=== PATIENT | female | born 1950 | race Caucasian/White ===

== ENCOUNTER 2017-06-02 17:19 | Emergency (ER) | payer MEDICARE, BC ==
[2017-06-02 17:39] VITALS: BP 172/78
[2017-06-02] MEDS ORDERED: Sodium Chloride 0.9% 10 ML Syringe FLUSH PRN (18:27)
[2017-06-02] MEDS ORDERED: HYDROmorphone 0.5 MG/0.5 ML Syringe IVPUSH ONE (18:27)
--- NOTE | 2017-06-02 18:33 | EDM.PDOC ---
ED HPI GENERAL MEDICAL PROBLEM - General Chief Complaint: Lower Extremity Injury/Pain Stated Complaint: MEDICAL Time Seen by Provider: 06/02/17 18:20 Source of Information: Reports: Patient, Family, Old Records History Limitations: Reports: No Limitations - History of Present Illness INITIAL COMMENTS - FREE TEXT/NARRATIVE: 66 yo morbidly obese female injured her left knee this past Tuesday when she tried to flex the knee to get her pants on and heard a pop laterally associated with pain. Has been getting around with a wheelchair in her home since then with difficulty. Didn't think she would be able to get in their car so called for an ambulance. 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) Left Leg Pain Score (Numeric/FACES): 10 - Related Data Allergies Allergy/AdvReac Type Severity Reaction Status Date / Time clindamycin Allergy Hives Verified 06/02/17 17:27 codeine Allergy Hives Verified 06/02/17 17:27 gabapentin [From Neurontin] Allergy Weakness Verified 06/02/17 17:27 hydroxychloroquine sulfate Allergy Joint Pain Verified 06/02/17 17:27 [From Plaquenil] latex Allergy Rash Verified 06/02/17 17:27 moxifloxacin HCl Allergy Cannot Verified 06/02/17 17:27 [From Avelox] Remember Penicillins Allergy Cannot Verified 06/02/17 17:27 Remember spironolactone Allergy Cannot Verified 06/02/17 17:27 Remember venom-honey bee Allergy Swelling Verified 06/02/17 17:27 [bee venom (honey bee)] Home Meds: Home Meds Celecoxib [CeleBREX] 200 mg PO ASDIRECTED PRN 12/11/13 [History] EPINEPHrine [Epipen 2-Chano] 0.3 mg SUBCUT ASDIRECTED PRN 12/11/13 [History] HYDROmorphone [Dilaudid] 4 mg PO Q4H PRN #14 tab 06/02/17 [Rx] Ibuprofen 400 mg PO ASDIRECTED PRN 06/02/17 [History] Past Medical History HEENT History: Reports: Impaired Vision Cardiovascular History: Reports: High Cholesterol, Hypertension 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: , 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 Musculoskeletal History: Reports: Other (See Below) Other Musculoskeletal History: fx toes Neurological History: Reports: Neuropathy, Peripheral Psychiatric History: Reports: Depression Endocrine/Metabolic History: Reports: Diabetes, Type II, Obesity/BMI 30+ Hematologic History: Reports: B12 Deficiency - Infectious Disease History Infectious Disease History: Reports: Chicken Pox, Measles, Mumps - Past Surgical History GI Surgical History: Reports: Appendectomy, Bariatric Procedure, Cholecystectomy Female Surgical History: Reports: Hysterectomy Social & Family History - Tobacco Use Smoking Status *Q: Never Smoker Second Hand Smoke Exposure: No - Caffeine Use Caffeine Use: Reports: Coffee, Tea - Alcohol Use Days Per Week of Alcohol Use: 0 - Recreational Drug Use Recreational Drug Use: No Review of Systems - Review of Systems Review Of Systems: See Below Constitutional: Reports: No Symptoms Eyes: Reports: No Symptoms Ears: Reports: No Symptoms Nose: Reports: No Symptoms Mouth/Throat: Reports: No Symptoms Respiratory: Reports: No Symptoms Cardiovascular: Reports: No Symptoms GI/Abdominal: Reports: No Symptoms Genitourinary: Reports: No Symptoms Musculoskeletal: Reports: Other (L knee pain laterally) Skin: Reports: No Symptoms Neurological: Reports: Other (Has neuropathy) ED EXAM, GENERAL - Physical Exam Exam: See Below Exam Limited By: No Limitations General Appearance: Alert, WD/WN, No Apparent Distress, Obese Eye Exam: Bilateral Eye: Normal Inspection Ears: Normal External Exam, Normal Canal, Hearing Grossly Normal, Normal TMs Ear Exam: Bilateral Ear: Auricle Normal, Canal Normal Nose: Normal Inspection, Normal Mucosa, No Blood Throat/Mouth: Normal Inspection, Normal Lips, Normal Oropharynx, Normal Voice, No Airway Compromise Head: Atraumatic, Normocephalic Neck: Normal Inspection, Supple, Non-Tender Respiratory/Chest: No Respiratory Distress, Lungs Clear, Normal Breath Sounds, No Accessory Muscle Use Cardiovascular: Regular Rate, Rhythm GI/Abdominal: Normal Bowel Sounds, Soft, Non-Tender, No Distention Extremities: Normal Inspection, Other (No redness or increased warmth. Tender lateral L knee. ). No: Joint Swelling Psychiatric: Normal Affect, Normal Mood Skin Exam: Warm, Dry, Intact, Normal Color, No Rash Lymphatic: No Adenopathy Course - Vital Signs Text/Narrative:: Was able to walk with a walker here in the ER. Does not want to stay. Home with . Last Recorded V/S: Last Vital Signs Temp 36.8 C 06/02/17 17:40 Pulse 64 06/02/17 17:40 Resp 14 06/02/17 17:40 BP 172/78 H 06/02/17 17:40 Pulse Ox 97 06/02/17 17:40 - Orders/Labs/Meds Orders: Active Orders 24 hr Category Date Time Status Knee 3V Lt [CR] Stat Exams 06/02/17 18:28 Taken Sodium Chloride 0.9% [Saline Flush] Med 06/02/17 18:27 Active 10 ml FLUSH ASDIRECTED PRN Saline Lock Insert [OM.PC] Routine Oth 06/02/17 18:27 Ordered Medication Orders Sodium Chloride (Saline Flush) 10 ml FLUSH ASDIRECTED PRN PRN Reason: Keep Vein Open Last Admin: 06/02/17 19:06 Dose: 10 ml Meds: Medications Generic Name Dose Route Start Last Admin Trade Name Freq PRN Reason Stop Dose Admin Sodium Chloride 10 ml 06/02/17 18:27 06/02/17 19:06 Saline Flush FLUSH 10 ml ASDIRECTED PRN Administration Keep Vein Open Discontinued Medications Generic Name Dose Route Start Last Admin Trade Name Freq PRN Reason Stop Dose Admin Hydromorphone HCl 0.5 mg 06/02/17 18:27 06/02/17 19:05 Dilaudid IVPUSH 06/02/17 18:28 0.5 mg ONETIME ONE Administration - Radiology Interpretation Free Text/Narrative:: L knee X-ray- Departure - Departure Time of Disposition: 20:46 Disposition: Home, Self-Care 01 Condition: Fair Clinical Impression: Knee pain, acute Qualifiers: Laterality: left Qualified Code(s): M25.562 - Pain in left knee - Discharge Information Prescriptions: HYDROmorphone [Dilaudid] 4 mg PO Q4H PRN #14 tab PRN Reason: Pain Referrals: PCP,None [Primary Care Provider] - Forms: ED Department Discharge Additional Instructions: Take acetaminophen 1000 mg every 6 hrs for pain relief. Add Dilaudid 4 mg every 4-6 hrs for added relief. F/U with orthopedics at your earliest opportunity. See your family doctor in the interim if needed. - My Orders Last 24 Hours: My Active Orders 06/02/17 18:27 Sodium Chloride 0.9% [Saline Flush] 10 ml FLUSH ASDIRECTED PRN Saline Lock Insert [OM.PC] Routine 06/02/17 18:28 Knee 3V Lt [CR] Stat - Assessment/Plan Last 24 Hours: My Active Orders 06/02/17 18:27 Sodium Chloride 0.9% [Saline Flush] 10 ml FLUSH ASDIRECTED PRN Saline Lock Insert [OM.PC] Routine 06/02/17 18:28 Knee 3V Lt [CR] Stat
--- NOTE | 2017-06-03 10:28 | CR ---
Advanced hypertrophic change lateral compartment. Hypertrophic change medial compartment. Joint space narrowing medial and lateral compartments is moderate. Advanced degenerative changes patellofemoral compartment. No evidence for fracture.
== END 2017-06-02 21:03 | disposition home or self-care (01) ==
LOC: JP.ED 17:19
DX: M25.562 Pain in left knee (principal); I10 Essential (primary) hypertension; E11.9 Type 2 diabetes mellitus without complications; Z88.1 Allergy status to other antibiotic agents; Z88.0 Allergy status to penicillin; Z88.8 Allergy status to other drugs, medicaments and biological substances; Z88.5 Allergy status to narcotic agent
CPT/HCPCS: 73562; 96374; 99284; J1170; J7050

== ENCOUNTER 2017-08-21 07:44 | Emergency (ER) | payer MEDICARE, BC ==
[2017-08-21 08:13] VITALS: BP 176/82
--- NOTE | 2017-08-21 08:45 | EDM.PDOC ---
ED HPI GENERAL MEDICAL PROBLEM - General Chief Complaint: Abdominal Pain Stated Complaint: STOMACH PAIN Time Seen by Provider: 08/21/17 08:39 Source of Information: Reports: Patient, Family History Limitations: Reports: No Limitations - History of Present Illness INITIAL COMMENTS - FREE TEXT/NARRATIVE: 66-year-old female who was had lower abdominal pain for the past 4-6 days. It suprapubic, somewhat radiating into the left lower quadrant and into her lower back. She is developed some mild dysuria over the past 48 hours. Denies any fevers or chills, denies nausea or vomiting, denies diarrhea. Onset: Gradual Location: Reports: Abdomen Severity: Moderate Worsens with: Reports: Movement Associated Symptoms: Reports: Other (Mild to moderate dysuria and increased urinary frequency) - Related Data Allergies Allergy/AdvReac Type Severity Reaction Status Date / Time clindamycin Allergy Hives Verified 08/21/17 08:27 codeine Allergy Hives Verified 08/21/17 08:27 gabapentin [From Neurontin] Allergy Weakness Verified 08/21/17 08:27 hydroxychloroquine sulfate Allergy Joint Pain Verified 08/21/17 08:27 [From Plaquenil] latex Allergy Rash Verified 08/21/17 08:27 moxifloxacin HCl Allergy Cannot Verified 08/21/17 08:27 [From Avelox] Remember Penicillins Allergy Cannot Verified 08/21/17 08:27 Remember spironolactone Allergy Cannot Verified 08/21/17 08:27 Remember venom-honey bee Allergy Swelling Verified 08/21/17 08:27 [bee venom (honey bee)] Home Meds: Home Meds Celecoxib [CeleBREX] 200 mg PO ASDIRECTED PRN 12/11/13 [History] EPINEPHrine [Epipen 2-Chano] 0.3 mg SUBCUT ASDIRECTED PRN 12/11/13 [History] Ibuprofen 400 mg PO ASDIRECTED PRN 06/02/17 [History] traMADol [Ultram] 50 mg PO TID PRN 06/06/17 [History] Omeprazole 40 mg PO ASDIRECTED 08/21/17 [History] Past Medical History HEENT History: Reports: Impaired Vision Cardiovascular History: Reports: High Cholesterol, Hypertension 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 left leg pain Neurological History: Reports: Neuropathy, Peripheral Psychiatric History: Reports: Depression Endocrine/Metabolic History: Reports: Diabetes, Type II, Obesity/BMI 30+ Hematologic History: Reports: B12 Deficiency - Infectious Disease History Infectious Disease History: Reports: Chicken Pox, Measles, Mumps - Past Surgical History GI Surgical History: Reports: Appendectomy, Bariatric Procedure, Cholecystectomy Female Surgical History: Reports: Hysterectomy Social & Family History - Tobacco Use Smoking Status *Q: Never Smoker - Caffeine Use Caffeine Use: Reports: Coffee - Recreational Drug Use Recreational Drug Use: No ED ROS GENERAL - Review of Systems Review Of Systems: See Below Constitutional: Reports: Malaise. Denies: Fever, Chills HEENT: Reports: No Symptoms Respiratory: Denies: Shortness of Breath Cardiovascular: Denies: Chest Pain GI/Abdominal: Reports: Abdominal Pain. Denies: Constipation, Diarrhea, Nausea, Vomiting : Reports: Dysuria, Frequency, Urgency Skin: Reports: No Symptoms Neurological: Reports: No Symptoms ED EXAM, GI/ABD - Physical Exam Exam: See Below Exam Limited By: No Limitations General Appearance: Alert, No Apparent Distress Eyes: Bilateral: Normal Appearance (No jaundice) Respiratory/Chest: No Respiratory Distress, Lungs Clear Cardiovascular: Regular Rate, Rhythm GI/Abdominal Exam: Soft, Tender (Patient is tender to palpation in the suprapubic area and into the lower left quadrant. She also has mild rebound tenderness in this area.) Course - Vital Signs Last Recorded V/S: Last Vital Signs Temp 98.7 F 08/21/17 08:33 Pulse 81 08/21/17 08:33 Resp 14 08/21/17 08:33 BP 176/82 H 08/21/17 08:33 Pulse Ox 95 08/21/17 08:33 - Orders/Labs/Meds Orders: Active Orders 24 hr Category Date Time Status Abdomen Pelvis wo Cont [CT] Stat Exams 08/21/17 09:26 Taken UA W/MICROSCOPIC [URIN] Urgent Lab 08/21/17 08:49 Ordered Labs: Laboratory Tests 08/21/17 08/21/17 08/21/17 Range/Units 08:49 08:54 08:54 WBC 8.6 (4.5-11.0) K/uL RBC 4.56 (3.30-5.50) M/uL Hgb 13.8 (12.0-15.0) g/dL Hct 40.9 (36.0-48.0) % MCV 90 (80-98) fL MCH 30 (27-31) pg MCHC 34 (32-36) % Plt Count 215 (150-400) K/uL Neut % (Auto) 77 H (36-66) % Lymph % (Auto) 13 L (24-44) % Stanly % (Auto) 10 H (2-6) % Eos % (Auto) 1 L (2-4) % Baso % (Auto) 0 (0-1) % Sodium 141 (140-148) mmol/L Potassium 4.0 (3.6-5.2) mmol/L Chloride 105 (100-108) mmol/L Carbon Dioxide 25 (21-32) mmol/L Anion Gap 11.4 (5.0-14.0) mmol/L BUN 13 (7-18) mg/dL Creatinine 0.9 (0.6-1.0) mg/dL Est Cr Clr Drug Dosing 58.34 mL/min Estimated GFR (MDRD) > 60 (>60) Glucose 114 H (74-106) mg/dL Calcium 9.2 (8.5-10.1) mg/dL Urine Color Yellow Urine Appearance Clear Urine pH 6.0 (4.5-8.0) Ur Specific Baring 1.010 (1.008-1.030) Urine Protein Negative (NEGATIVE) mg/dL Urine Glucose (UA) Normal (NEGATIVE) mg/dL Urine Ketones Negative (NEGATIVE) mg/dL Urine Occult Blood Negative (NEGATIVE) Urine Nitrite Negative (NEGATIVE) Urine Bilirubin Negative (NEGATIVE) Urine Urobilinogen Normal (NORMAL) mg/dL Ur Leukocyte Esterase Small (NEGATIVE) Urine RBC 0-5 (0-5) Urine WBC 10-20 H (0-5) Ur Epithelial Cells Few Amorphous Sediment Not seen Urine Bacteria Not seen Urine Mucus Not seen Meds: Medications Discontinued Medications Generic Name Dose Route Start Last Admin Trade Name Freq PRN Reason Stop Dose Admin Hydromorphone HCl 1 mg 08/21/17 10:42 08/21/17 10:46 Dilaudid IM 08/21/17 10:43 1 mg ONETIME ONE Administration - Re-Assessments/Exams Free Text/Narrative Re-Assessment/Exam: 08/21/17 09:37 A UA was obtained and did not look significantly abnormal. CBC and BMP were obtained with the intention of a CT scan to rule out diverticulitis. 08/21/17 09:38 Patient had 10-20 WBCs in her urine but no bacteria. CBC and BMP were normal. CT was ordered. 08/21/17 10:42 CT scan confirmed sigmoid diverticulitis without perforation or abscess. We'll attempt to treat this as an outpatient with Bactrim DS twice a day, metronidazole 500 3 times a day for the next at least 7 days, and she'll be given 10 hydrocodone for extra pain control. Encouraged to keep stools soft with a stool softener, drink lots of water, and she can return anytime if not tolerating the medication or worsening. Rechecking with her primary provider in 2 weeks is recommended. Departure - Departure Time of Disposition: 11:08 Disposition: Home, Self-Care 01 Condition: Fair Clinical Impression: Sigmoid diverticulitis Abdominal pain Qualifiers: Abdominal location: lower abdomen, unspecified Qualified Code(s): R10.30 - Lower abdominal pain, unspecified - Discharge Information Instructions: Diverticulitis, [id number] Referrals: PCP,None [Primary Care Provider] - Forms: ED Department Discharge Care Plan Goals: Drink lots of water, a stool softener may be worthwhile. Take antibiotics as prescribed for at least 7 days, recheck in 2-3 days if not improving satisfactorily. Return sooner if worsening such as vomiting the medication or increased pain. If improving and doing well, follow-up with your regular doctor in 2-3 weeks. - My Orders Last 24 Hours: My Active Orders 08/21/17 08:49 UA W/MICROSCOPIC [URIN] Urgent 08/21/17 09:26 Abdomen Pelvis wo Cont [CT] Stat - Assessment/Plan Last 24 Hours: My Active Orders 08/21/17 08:49 UA W/MICROSCOPIC [URIN] Urgent 08/21/17 09:26 Abdomen Pelvis wo Cont [CT] Stat
[2017-08-21] MEDS ORDERED: HYDROmorphone 1 MG/ML Syringe IM ONE (10:42)
== END 2017-08-21 11:08 | disposition home or self-care (01) ==
LOC: JP.ED 07:44
DX: K57.32 Diverticulitis of large intestine without perforation or abscess without bleeding (principal); I10 Essential (primary) hypertension; E11.40 Type 2 diabetes mellitus with diabetic neuropathy, unspecified; E78.00 Pure hypercholesterolemia, unspecified; Z79.899 Other long term (current) drug therapy; F32.9 Major depressive disorder, single episode, unspecified; Z88.1 Allergy status to other antibiotic agents; Z88.5 Allergy status to narcotic agent; Z91.040 Latex allergy status; Z88.8 Allergy status to other drugs, medicaments and biological substances; Z88.0 Allergy status to penicillin; Z91.030 Bee allergy status
CPT/HCPCS: 36415; 74176; 80048; 81001; 85025; 96372; 99284; J1170

== ENCOUNTER 2017-08-24 08:30 | Emergency (ER) | payer MEDICARE, BC ==
[2017-08-24 08:51] VITALS: BP 154/70
--- NOTE | 2017-08-24 09:50 | EDM.PDOC ---
ED HPI GENERAL MEDICAL PROBLEM - General Chief Complaint: Abdominal Pain Stated Complaint: PAIN IN STOMACH Time Seen by Provider: 08/24/17 09:23 Source of Information: Reports: Patient History Limitations: Reports: No Limitations - History of Present Illness INITIAL COMMENTS - FREE TEXT/NARRATIVE: Seen on 08/21 and found to have sigmoid diverticulitis. Rx'd Bactrim and Flagyl also opiod. She said she's better but the pain med causes constipation. No BM since Tuesday 4 days ago. She told nurse that she isn't getting any better but told me that she had in fact improved with the ABX. pain in LUQ Abdomen Pain Score (Numeric/FACES): 1 - Related Data Allergies Allergy/AdvReac Type Severity Reaction Status Date / Time clindamycin Allergy Hives Verified 08/24/17 08:56 codeine Allergy Hives Verified 08/24/17 08:56 gabapentin [From Neurontin] Allergy Weakness Verified 08/24/17 08:56 hydroxychloroquine sulfate Allergy Joint Pain Verified 08/24/17 08:56 [From Plaquenil] latex Allergy Rash Verified 08/24/17 08:56 moxifloxacin HCl Allergy Cannot Verified 08/24/17 08:56 [From Avelox] Remember Penicillins Allergy Cannot Verified 08/24/17 08:56 Remember spironolactone Allergy Cannot Verified 08/24/17 08:56 Remember venom-honey bee Allergy Swelling Verified 08/24/17 08:56 [bee venom (honey bee)] Home Meds: Home Meds Celecoxib [CeleBREX] 200 mg PO ASDIRECTED PRN 12/11/13 [History] EPINEPHrine [Epipen 2-Chano] 0.3 mg SUBCUT ASDIRECTED PRN 12/11/13 [History] traMADol [Ultram] 50 mg PO TID PRN 06/06/17 [History] Omeprazole 40 mg PO ASDIRECTED 08/21/17 [History] Hydrocodone/Acetaminophen [Hydrocodon-Acetaminophen 5-325] 1 tab PO Q4H [History] Sennosides/Docusate Sodium [Senna-S] 1 tab PO DAILY 08/24/17 [History] Sulfamethoxazole/Trimethoprim [Bactrim Ds Tablet] 1 tab PO BID 08/24/17 [History ] metroNIDAZOLE [Metronidazole] 1 tab PO TID 08/24/17 [History] Past Medical History HEENT History: Reports: Impaired Vision Cardiovascular History: Reports: High Cholesterol, Hypertension 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 left leg pain Neurological History: Reports: Neuropathy, Peripheral Psychiatric History: Reports: Depression Endocrine/Metabolic History: Reports: Diabetes, Type II, Obesity/BMI 30+ Hematologic History: Reports: B12 Deficiency - Infectious Disease History Infectious Disease History: Reports: Chicken Pox, Measles, Mumps - Past Surgical History GI Surgical History: Reports: Appendectomy, Bariatric Procedure, Cholecystectomy Female Surgical History: Reports: Hysterectomy Social & Family History - Tobacco Use Smoking Status *Q: Never Smoker - Caffeine Use Caffeine Use: Reports: Coffee - Recreational Drug Use Recreational Drug Use: No ED ROS GENERAL - Review of Systems Review Of Systems: See Below Constitutional: Denies: Fever HEENT: Reports: No Symptoms, Vertigo Cardiovascular: Reports: No Symptoms Endocrine: Reports: No Symptoms GI/Abdominal: Reports: Abdominal Pain, Constipation : Reports: No Symptoms Musculoskeletal: Reports: No Symptoms Skin: Reports: No Symptoms ED EXAM, GI/ABD - Physical Exam Exam: See Below Exam Limited By: No Limitations General Appearance: Alert, Obese Respiratory/Chest: Lungs Clear Cardiovascular: Regular Rate, Rhythm GI/Abdominal Exam: Normal Bowel Sounds, Soft, Other (vague mild tenderness in LUQ and entire rt side of abd. Palpable stool on right. LLQ minimally tend.) Course - Vital Signs Last Recorded V/S: Last Vital Signs Temp 36.7 C 08/24/17 08:54 Pulse 69 08/24/17 08:54 Resp 15 08/24/17 08:54 BP 154/70 H 08/24/17 08:54 Pulse Ox 98 08/24/17 08:54 Departure - Departure Time of Disposition: 09:52 Disposition: Home, Self-Care 01 Condition: Fair Clinical Impression: Sigmoid diverticulitis, Constipation - Discharge Information Referrals: PCP,None [Primary Care Provider] - Additional Instructions: Continue all medications including the pain med. Drink 1 full bottle of Magnesium Citrate and several glasses of water today. You bowels should clear within 12-24 hours. If you continue to have problems then see doctor or return to the ER. Return to ER at any time if worse.
== END 2017-08-24 10:13 | disposition home or self-care (01) ==
LOC: JP.ED 08:30
DX: K57.32 Diverticulitis of large intestine without perforation or abscess without bleeding (principal); K59.00 Constipation, unspecified; E78.00 Pure hypercholesterolemia, unspecified; I10 Essential (primary) hypertension; E11.9 Type 2 diabetes mellitus without complications; Z88.1 Allergy status to other antibiotic agents; Z88.5 Allergy status to narcotic agent; Z88.0 Allergy status to penicillin; Z88.8 Allergy status to other drugs, medicaments and biological substances; Z91.030 Bee allergy status; Z79.899 Other long term (current) drug therapy
CPT/HCPCS: 99284

== ENCOUNTER 2018-04-27 19:05 | Emergency (ER) | payer MEDICARE, BC ==
[2018-04-27 20:56] VITALS: BP 132/64
[2018-04-27] MEDS ORDERED: Ibuprofen 400 MG Tab PO ONE (21:05)
--- NOTE | 2018-04-27 21:07 | EDM.PDOC ---
ED HPI GENERAL MEDICAL PROBLEM - General Chief Complaint: General Stated Complaint: FEVER/CHILLS,BODY ACHES Time Seen by Provider: 04/27/18 20:50 Source of Information: Reports: Patient, Family History Limitations: Reports: No Limitations - History of Present Illness INITIAL COMMENTS - FREE TEXT/NARRATIVE: 67-year-old female who developed shaking chills last evening after receiving a Reclast injection earlier in the day. All day today she has felt malaise and weakness, generalized chills but no specific symptom of infection such as cough , shortness of breath, nausea vomiting diarrhea or cold symptoms. Onset: Gradual Duration: Hour(s): (Symptoms for 12 hours) Location: Reports: Generalized Severity: Moderate Improves with: Reports: Other (Tylenol seem to help earlier) Associated Symptoms: Reports: Fever/Chills, Loss of Appetite, Malaise, Weakness. Denies: Chest Pain Body Pain Score (Numeric/FACES): 6 - Related Data Allergies Allergy/AdvReac Type Severity Reaction Status Date / Time clindamycin Allergy Hives Verified 04/27/18 20:59 codeine Allergy Hives Verified 04/27/18 20:59 gabapentin [From Neurontin] Allergy Weakness Verified 04/27/18 20:59 hydroxychloroquine sulfate Allergy Joint Pain Verified 04/27/18 20:59 [From Plaquenil] latex Allergy Rash Verified 04/27/18 20:59 moxifloxacin HCl Allergy Cannot Verified 04/27/18 20:59 [From Avelox] Remember Penicillins Allergy Cannot Verified 04/27/18 20:59 Remember spironolactone Allergy Cannot Verified 04/27/18 20:59 Remember venom-honey bee Allergy Swelling Verified 04/27/18 20:59 [bee venom (honey bee)] Home Meds: Home Meds Celecoxib [CeleBREX] 200 mg PO ASDIRECTED PRN 12/11/13 [History] EPINEPHrine [Epipen 2-Chano] 0.3 mg SUBCUT ASDIRECTED PRN 12/11/13 [History] Past Medical History HEENT History: Reports: Impaired Vision Cardiovascular History: Reports: High Cholesterol, Hypertension Gastrointestinal History: Reports: GERD STAND UP COMEDIAN History: Reports: , 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 left leg pain Neurological History: Reports: Neuropathy, Peripheral Psychiatric History: Reports: Depression Endocrine/Metabolic History: Reports: Diabetes, Type II, Obesity/BMI 30+ Hematologic History: Reports: B12 Deficiency - Infectious Disease History Infectious Disease History: Reports: Chicken Pox, Measles, Mumps - Past Surgical History GI Surgical History: Reports: Appendectomy, Bariatric Procedure, Cholecystectomy Female Surgical History: Reports: Hysterectomy Social & Family History - Family History Family Medical History: Unobtainable - Caffeine Use Caffeine Use: Reports: Coffee ED ROS GENERAL - Review of Systems Review Of Systems: See Below Constitutional: Reports: Fever, Chills, Malaise HEENT: Reports: No Symptoms Respiratory: Denies: Shortness of Breath, Cough Cardiovascular: Reports: Palpitations. Denies: Chest Pain GI/Abdominal: Reports: Nausea. Denies: Abdominal Pain, Vomiting : Reports: No Symptoms Musculoskeletal: Reports: Muscle Pain (Aches all over) Skin: Denies: Rash Neurological: Reports: Dizziness (Chronic vertigo is worse). Denies: Headache, Trouble Speaking, Change in Speech ED EXAM, GENERAL - Physical Exam Exam: See Below Exam Limited By: No Limitations General Appearance: Alert, No Apparent Distress Eye Exam: Bilateral Eye: Normal Inspection (No nystagmus or jaundice) Throat/Mouth: Normal Inspection Head: Atraumatic Respiratory/Chest: No Respiratory Distress, Lungs Clear Cardiovascular: Regular Rate, Rhythm. No: Tachycardia GI/Abdominal: Soft, Tender (Mild diffuse discomfort to palpation, nothing focal) Extremities: Normal Inspection Neurological: Alert, Oriented Psychiatric: Normal Affect, Normal Mood Skin Exam: Warm, Dry Course - Vital Signs Last Recorded V/S: Last Vital Signs Temp 99.9 F 04/27/18 21:15 Pulse 78 04/27/18 20:54 Resp 14 04/27/18 20:54 BP 132/64 04/27/18 20:54 Pulse Ox 94 L 04/27/18 20:54 - Orders/Labs/Meds Labs: Laboratory Tests 04/27/18 04/27/18 Range/Units 21:03 21:03 WBC 7.2 (4.5-11.0) K/uL RBC 4.57 (3.30-5.50) M/uL Hgb 13.6 (12.0-15.0) g/dL Hct 42.4 (36.0-48.0) % MCV 93 (80-98) fL MCH 30 (27-31) pg MCHC 32 (32-36) % Plt Count 158 (150-400) K/uL Neut % (Auto) 87 H (36-66) % Lymph % (Auto) 8 L (24-44) % Cottle % (Auto) 5 (2-6) % Eos % (Auto) 0 L (2-4) % Baso % (Auto) 0 (0-1) % Sodium 137 L (140-148) mmol/L Potassium 3.5 L (3.6-5.2) mmol/L Chloride 102 (100-108) mmol/L Carbon Dioxide 27 (21-32) mmol/L Anion Gap 11.5 (5.0-14.0) mmol/L BUN 10 (7-18) mg/dL Creatinine 0.7 (0.6-1.0) mg/dL Est Cr Clr Drug Dosing 74.01 mL/min Estimated GFR (MDRD) > 60 (>60) Glucose 132 H (74-106) mg/dL Calcium 8.7 (8.5-10.1) mg/dL Meds: Medications Discontinued Medications Generic Name Dose Route Start Last Admin Trade Name Freq PRN Reason Stop Dose Admin Ibuprofen 400 mg 04/27/18 21:05 04/27/18 21:15 Motrin PO 04/27/18 21:06 400 mg ONETIME ONE Administration Ketorolac Tromethamine 60 mg 04/27/18 21:54 04/27/18 22:01 Toradol IM 04/27/18 21:55 60 mg ONETIME ONE Administration - Re-Assessments/Exams Free Text/Narrative Re-Assessment/Exam: 04/27/18 21:52 Patient was given 400 mg of ibuprofen and a CBC and BMP were obtained. Departure - Departure Time of Disposition: 22:28 Disposition: Home, Self-Care 01 Condition: Good Clinical Impression: Pain in the muscles Fever Qualifiers: Fever type: drug-induced Qualified Code(s): R50.2 - Drug induced fever - Discharge Information Instructions: Muscle Pain, Adult Referrals: Pily Castano PA-C [Primary Care Provider] - Forms: ED Department Discharge Care Plan Goals: Continue current medications, Tylenol or ibuprofen as needed for fever and muscle pain. Return anytime if worsening despite treatment.
[2018-04-27] MEDS ORDERED: Ketorolac 60 MG/2 ML SDV IM ONE (21:54)
== END 2018-04-27 22:25 | disposition home or self-care (01) ==
LOC: JP.ED 19:05
DX: R50.2 Drug induced fever (principal); T50.995A Adverse effect of other drugs, medicaments and biological substances, initial encounter; M79.10 Myalgia, unspecified site; E78.00 Pure hypercholesterolemia, unspecified; I10 Essential (primary) hypertension; E11.9 Type 2 diabetes mellitus without complications; Z88.8 Allergy status to other drugs, medicaments and biological substances
CPT/HCPCS: 36415; 80048; 85025; 96372; 99283; A9270; J1885

== ENCOUNTER 2018-07-02 22:16 | Emergency (ER) | payer MEDICARE, BC ==
[2018-07-02] MEDS ORDERED: Sodium Chloride 0.9% 10 ML Syringe FLUSH PRN (22:17)
[2018-07-02] MEDS ORDERED: LORazepam 2 MG/ML SDV IVPUSH ONE (22:18)
--- NOTE | 2018-07-02 22:27 | EDM.PDOC ---
ED HPI GENERAL MEDICAL PROBLEM - General Chief Complaint: Chest Pain Stated Complaint: CHEST PAINS Time Seen by Provider: 07/02/18 22:20 Source of Information: Reports: Patient, Old Records History Limitations: Reports: No Limitations - History of Present Illness INITIAL COMMENTS - FREE TEXT/NARRATIVE: 67 yo female developed L axillary pain that began this morning and now extends to her left arm to the level of her elbow. She denies a pHx of AODM, hyperlipidemia, or family hx of CAD. She does have HTN. She has no personal hx of CAD. She denies SOB, nausea or diaphoresis. She denies any injury to her L arm or unusual exertion recently. Here with her via private vehicle. Has a pHx of gastric bypass with Dr. Gutierrez here about 10 yrs ago. Had pain like this once in the past determined to be neuropathy. Onset: Today Onset Date: 07/02/18 Onset Time: 08:00 Duration: Hour(s):, Constant, Getting Worse Location: Reports: Upper Extremity, Left Quality: Reports: Ache Severity: Moderate Improves with: Reports: None Worsens with: Reports: Other (touching areas of pain) Context: Reports: Other (See HPI) Associated Symptoms: Denies: Chest Pain (L axilla is location of pain's onset), Cough, Diaphoresis, Fever/Chills, Nausea/Vomiting, Rash, Shortness of Breath Treatments DINKEY ENGINEER: Reports: Other (see below) (none) - Related Data Allergies Allergy/AdvReac Type Severity Reaction Status Date / Time clindamycin Allergy Hives Verified 07/02/18 22:28 codeine Allergy Hives Verified 07/02/18 22:28 gabapentin [From Neurontin] Allergy Weakness Verified 07/02/18 22:28 latex Allergy Rash Verified 07/02/18 22:28 moxifloxacin HCl Allergy Cannot Verified 07/02/18 22:28 [From Avelox] Remember Penicillins Allergy Cannot Verified 07/02/18 22:28 Remember spironolactone Allergy Cannot Verified 07/02/18 22:28 Remember venom-honey bee Allergy Swelling Verified 07/02/18 22:28 [bee venom (honey bee)] hydroxychloroquine sulfate AdvReac Joint Pain Verified 07/02/18 22:28 [From Plaquenil] mannitol [From Reclast] AdvReac Muscle Verified 07/02/18 22:28 Aches water for injection,sterile AdvReac Muscle Verified 07/02/18 22:28 [From Reclast] Aches zoledronic acid AdvReac Muscle Verified 07/02/18 22:28 [From Reclast] Aches Home Meds: Home Meds Celecoxib [CeleBREX] 200 mg PO ASDIRECTED PRN 12/11/13 [History] EPINEPHrine [Epipen 2-Chano] 0.3 mg SUBCUT ASDIRECTED PRN 12/11/13 [History] Acetaminophen [Tylenol] 650 mg PO ASDIRECTED PRN 06/16/18 [History] Aspirin [Children's Aspirin] 81 mg PO DAILY 06/16/18 [History] Calcium Carbonate [Calcium] 500 mg PO BID 06/16/18 [History] Cholecalciferol (Vitamin D3) [Vitamin D3] 1,000 unit PO BID 06/16/18 [History] Cyanocobalamin (Vitamin B-12) [B-12] 1,000 mcg PO BID 06/16/18 [History] Gluc/Brandon-Msm#1/Vit C/Chase/Bor [Cmlvwkw-Fbpjr-DVB Complex Cplt] 1 tab PO DAILY 06/16/18 [History] Ibuprofen 400 mg PO ASDIRECTED PRN 06/16/18 [History] Lisinopril 10 mg PO DAILY 06/16/18 [History] Magnesium 250 mg PO BID 06/16/18 [History] Meclizine [Antivert] 12.5 mg PO TID PRN 06/16/18 [History] Multivitamin [Multiple Vitamins] 1 tab PO BID 06/16/18 [History] Nystatin [Nystatin Crm] 15 gm TOP BID PRN 06/16/18 [History] Sennosides/Docusate Sodium [Senna-Docusate Sodium Tablet] 1 - 2 tab PO BEDTIME PRN 06/16/18 [History] Thiamine [Vitamin B-1] 100 mg PO BEDTIME 06/16/18 [History] Triamcinolone Acetonide [Kenalog 0.1% Crm] 1 applic TOP BID PRN 06/16/18 [ History] LORazepam [Ativan] 1 mg PO Q8H PRN #5 tab 07/02/18 [Rx] Past Medical History HEENT History: Reports: Impaired Vision Cardiovascular History: Reports: High Cholesterol, Hypertension Gastrointestinal History: Reports: GERD 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 left leg pain Neurological History: Reports: Neuropathy, Peripheral Psychiatric History: Reports: Depression Endocrine/Metabolic History: Reports: Diabetes, Type II, Obesity/BMI 30+ Hematologic History: Reports: B12 Deficiency - Infectious Disease History Infectious Disease History: Reports: Chicken Pox, Measles, Mumps - Past Surgical History GI Surgical History: Reports: Appendectomy, Bariatric Procedure, Cholecystectomy Female Surgical History: Reports: Hysterectomy Social & Family History - Family History Family Medical History: Unobtainable - Caffeine Use Caffeine Use: Reports: Coffee ED ROS GENERAL - Review of Systems Review Of Systems: See Below Constitutional: Reports: No Symptoms HEENT: Reports: No Symptoms Respiratory: Reports: No Symptoms Cardiovascular: Reports: No Symptoms GI/Abdominal: Reports: No Symptoms : Reports: No Symptoms Musculoskeletal: Reports: Arm Pain (L shoulder and L elbow pain.) Skin: Reports: No Symptoms Neurological: Reports: No Symptoms Psychiatric: Reports: No Symptoms ED EXAM, GENERAL - Physical Exam Exam: See Below Exam Limited By: No Limitations General Appearance: Alert, WD/WN, No Apparent Distress Eye Exam: Bilateral Eye: Normal Inspection Ears: Normal External Exam, Normal Canal, Hearing Grossly Normal, Normal TMs Ear Exam: Bilateral Ear: Auricle Normal, Canal Normal, TM normal Nose: Normal Inspection, Normal Mucosa, No Blood Throat/Mouth: Normal Inspection, Normal Lips, Normal Oropharynx, Normal Voice, No Airway Compromise, Inflammation Head: Atraumatic, Normocephalic Neck: Normal Inspection, Non-Tender Respiratory/Chest: No Respiratory Distress, Lungs Clear, Normal Breath Sounds, No Accessory Muscle Use, Chest Non-Tender Cardiovascular: Regular Rate, Rhythm, No Edema GI/Abdominal: Normal Bowel Sounds, Soft, Non-Tender, No Distention Back Exam: Normal Inspection. No: CVA Tenderness (R), CVA Tenderness (L) Extremities: Normal Inspection, Normal Range of Motion, No Pedal Edema, Other ( tenderness with palpation to the L deltoid and L prox/lateral forearm. ). No: Pedal Edema, Limited Range of Motion, Increased Warmth, Redness Neurological: Alert, Oriented, CN II-XII Intact, Normal Cognition, No Motor/ Sensory Deficits Psychiatric: Normal Affect, Normal Mood Skin Exam: Warm, Dry, Intact, Normal Color, No Rash EKG INTERPRETATION EKG Date: 07/02/18 Time: 22:20 Rhythm: NSR Rate (Beats/Min): 66 [place]: Normal P-Wave: Present QRS: Normal ST-T: Normal QT: Normal Comparison: Change From Previous EKG (unifocal PVC's now present, no other acute changes.) Course - Vital Signs Text/Narrative:: Sx's all resolved after 0.5 mg IV Ativan. Last Recorded V/S: Last Vital Signs Temp 37.1 C 07/02/18 22:17 Pulse 60 07/02/18 23:05 Resp 22 H 07/02/18 23:05 BP 162/67 H 07/02/18 23:05 Pulse Ox 98 07/02/18 23:05 - Orders/Labs/Meds Orders: Active Orders 24 hr Category Date Time Status Cardiac Monitoring [RC] .As Directed Care 07/02/18 22:20 Active EKG Documentation Completion [RC] ASDIRECTED Care 07/02/18 22:20 Active Sodium Chloride 0.9% [Saline Flush] Med 07/02/18 22:17 Active 10 ml FLUSH ASDIRECTED PRN Saline Lock Insert [OM.PC] Routine Oth 07/02/18 22:17 Ordered EKG 12 Lead [EK] Routine Ther 07/02/18 22:19 Ordered Medication Orders Sodium Chloride (Saline Flush) 10 ml FLUSH ASDIRECTED PRN PRN Reason: Keep Vein Open Last Admin: 07/02/18 22:42 Dose: 10 ml Labs: Laboratory Tests 07/02/18 07/02/18 07/02/18 Range/Units 22:18 22:26 23:03 WBC 7.3 (4.5-11.0) K/uL RBC 4.61 (3.30-5.50) M/uL Hgb 13.5 (12.0-15.0) g/dL Hct 42.0 (36.0-48.0) % MCV 91 (80-98) fL MCH 29 (27-31) pg MCHC 32 (32-36) % Plt Count 210 (150-400) K/uL Sodium 140 (140-148) mmol/L Potassium 3.6 (3.6-5.2) mmol/L Chloride 103 (100-108) mmol/L Carbon Dioxide 27 (21-32) mmol/L Anion Gap 9.7 (5.0-14.0) mmol/L BUN 12 (7-18) mg/dL Creatinine 0.9 (0.6-1.0) mg/dL Est Cr Clr Drug Dosing TNP Estimated GFR (MDRD) > 60 (>60) Glucose 119 H (74-106) mg/dL Calcium 9.8 (8.5-10.1) mg/dL Troponin I < 0.017 (0.000-0.056) ng/mL Urine Color Yellow Urine Appearance Clear Urine pH 8.0 (4.5-8.0) Ur Specific [place] 1.010 (1.008-1.030) Urine Protein Negative (NEGATIVE) mg/dL Urine Glucose (UA) Normal (NEGATIVE) mg/dL Urine Ketones Negative (NEGATIVE) mg/dL Urine Occult Blood Negative (NEGATIVE) Urine Nitrite Negative (NEGATIVE) Urine Bilirubin Negative (NEGATIVE) Urine Urobilinogen Normal (NORMAL) mg/dL Ur Leukocyte Esterase Negative (NEGATIVE) Urine RBC 0-5 (0-5) Urine WBC 0-5 (0-5) Ur Epithelial Cells Rare Amorphous Sediment Not seen Urine Bacteria Few Urine Mucus Not seen Meds: Medications Generic Name Dose Route Start Last Admin Trade Name Freq PRN Reason Stop Dose Admin Sodium Chloride 10 ml 07/02/18 22:17 07/02/18 22:42 Saline Flush FLUSH 10 ml ASDIRECTED PRN Administration Keep Vein Open Discontinued Medications Generic Name Dose Route Start Last Admin Trade Name Freq PRN Reason Stop Dose Admin Lorazepam 0.5 mg 07/02/18 22:18 07/02/18 22:42 Ativan IVPUSH 07/02/18 22:19 0.5 mg ONETIME ONE Administration Departure - Departure Time of Disposition: 23:28 Disposition: Home, Self-Care 01 Condition: Good Clinical Impression: Anxiety Prescriptions: LORazepam [Ativan] 1 mg PO Q8H PRN #5 tab PRN Reason: Anxiety Instructions: Generalized Anxiety Disorder, Adult Referrals: PCP,None [Primary Care Provider] - Forms: ED Department Discharge Additional Instructions: Take lorazepam as needed for a return of your symptoms. Follow up with your doctor later this week. Return here as needed. - My Orders Last 24 Hours: My Active Orders 07/02/18 22:17 Sodium Chloride 0.9% [Saline Flush] 10 ml FLUSH ASDIRECTED PRN Saline Lock Insert [OM.PC] Routine 07/02/18 22:19 EKG 12 Lead [EK] Routine 07/02/18 22:20 Cardiac Monitoring [RC] .As Directed EKG Documentation Completion [RC] ASDIRECTED - Assessment/Plan Last 24 Hours: My Active Orders 07/02/18 22:17 Sodium Chloride 0.9% [Saline Flush] 10 ml FLUSH ASDIRECTED PRN Saline Lock Insert [OM.PC] Routine 07/02/18 22:19 EKG 12 Lead [EK] Routine 07/02/18 22:20 Cardiac Monitoring [RC] .As Directed EKG Documentation Completion [RC] ASDIRECTED
[2018-07-02 23:43] VITALS: BP 106/64
== END 2018-07-02 23:44 | disposition home or self-care (01) ==
LOC: JP.ED 22:16
DX: F41.9 Anxiety disorder, unspecified (principal); M79.602 Pain in left arm; E78.00 Pure hypercholesterolemia, unspecified; I10 Essential (primary) hypertension; E11.42 Type 2 diabetes mellitus with diabetic polyneuropathy; Z88.1 Allergy status to other antibiotic agents; Z91.040 Latex allergy status; Z88.8 Allergy status to other drugs, medicaments and biological substances; Z79.899 Other long term (current) drug therapy; Z79.82 Long term (current) use of aspirin
CPT/HCPCS: 36415; 80048; 81001; 84484; 85027; 93005; 96374; 99284; J2060

== ENCOUNTER 2018-07-04 07:48 | Day surgery (SDC) | payer MEDICARE, BC ==
[~2018-07-04 07:48] MED LIST: Midazolam 1 MG/ML 2 ML SDV ONE; Propofol 200 MG/20 ML SDV ONE; fentaNYL 100 MCG/2 ML SDV ONE
[2018-07-04] MEDS ORDERED: Sodium Chloride 0.9% 1,000 ML IV SCH (08:30)
[2018-07-04 10:56] VITALS: BP 127/58
--- NOTE | 2018-07-05 08:28 | OR ---
DATE OF PROCEDURE: 07/04/2018 SURGEON: Zack Simmons MD PROCEDURE: Colonoscopy. FINDINGS: Diverticulosis, mild. COMPLICATIONS: None. 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 PREOPERATIVE DIAGNOSIS: Family history of colorectal cancer. POSTOPERATIVE DIAGNOSIS: Family history of colorectal cancer. RISKS: Risks, benefits, alternatives, and limitations including, but not limited to infection, bleeding, and perforation were explained to the patient, who wished to proceed. PROCEDURE IN DETAIL: The patient was placed in left lateral decubitus position. Digital rectal exam was performed without abnormality. The scope was introduced atraumatically to the ileocecal valve. The scope was brought back through the ascending, transverse, descending colon, and retroflexed. No evidence of old or new blood. No masses. No polyps. Diverticulosis would be described as mild and limited to sigmoid colon only. No abnormalities on retroflex. The patient tolerated the procedure well. Zack Simmons MD /[id number]
== END 2018-07-04 11:10 | disposition home or self-care (01) ==
LOC: JP.SDS 07:48
PROVIDERS: ATTEND Surgery
DX: Z12.11 Encounter for screening for malignant neoplasm of colon (principal); K57.30 Diverticulosis of large intestine without perforation or abscess without bleeding; I10 Essential (primary) hypertension; G62.9 Polyneuropathy, unspecified; Z88.8 Allergy status to other drugs, medicaments and biological substances; Z80.0 Family history of malignant neoplasm of digestive organs
CPT/HCPCS: G0105; J2250; J2704; J3010; J7030

== ENCOUNTER 2018-11-03 10:01 | Inpatient (IN) | payer MEDICARE, BC ==
[~2018-11-03 10:01] MED LIST changes: +Meropenem 500 MG SDV ONE; -Midazolam 1 MG/ML 2 ML SDV ONE; -Propofol 200 MG/20 ML SDV ONE; -fentaNYL 100 MCG/2 ML SDV ONE
[2018-11-03] MEDS ORDERED: Acetaminophen 500 MG Tab PO ONE (10:45)
[2018-11-03] MEDS ORDERED: ceFAZolin 2 GM in Premix Bag 1 BAG IV ONE (11:05)
[2018-11-03] MEDS ORDERED: Dextrose 5%-Lactated Ringers 1,000 ML IV SCH (11:15)
[2018-11-03] MEDS ORDERED: ceFAZolin 2 GM in Sodium Chloride 0.9% 50 ML IV ONE (11:15)
[2018-11-03] MEDS ORDERED: fentaNYL 250 MCG/5 ML SDV ONE (12:06)
[2018-11-03] MEDS ORDERED: Dexamethasone 4 MG/ML SDV ONE (12:08)
[2018-11-03] MEDS ORDERED: Propofol 200 MG/20 ML SDV ONE (12:08)
[2018-11-03] MEDS ORDERED: Ondansetron 4 MG/2 ML SDV ONE (12:08)
[2018-11-03] MEDS ORDERED: Succinylcholine 200 MG/10 ML MDV ONE (12:08)
[2018-11-03] MEDS ORDERED: Neostigmine Methylsulfate 1 MG/ML 5 ML Syringe ONE (12:08)
[2018-11-03] MEDS ORDERED: Rocuronium 50 MG/5 ML Vial ONE (12:08)
[2018-11-03] MEDS ORDERED: Glycopyrrolate 0.2 MG/ML 5 ML MDV ONE (12:08)
[2018-11-03] MEDS ORDERED: Ketamine 500 MG/5 ML MDV IV SCH (12:15)
[2018-11-03] MEDS ORDERED: Ketamine 50 MG in Sodium Chloride 0.9% 49.5 ML IV SCH (12:15)
[2018-11-03] MEDS ORDERED: Lidocaine 1% 2 ML ONE (12:48)
[2018-11-03] MEDS ORDERED: fentaNYL 100 MCG/2 ML SDV ONE (14:38)
[2018-11-03] MEDS ORDERED: Ondansetron 4 MG/2 ML SDV IVPUSH PRN ×2 (15:12→16:28)
[2018-11-03] MEDS ORDERED: diphenhydrAMINE 25 MG Cap PO PRN (15:12)
[2018-11-03] MEDS ORDERED: Naloxone 0.4 MG/ML SDV IVPUSH PRN (15:12)
[2018-11-03] MEDS ORDERED: diphenhydrAMINE 50 MG/ML SDV IVPUSH PRN (15:12)
[2018-11-03] MEDS ORDERED: Naloxone 0.4 MG/ML SDV IV PRN (15:15)
[2018-11-03] MEDS: HYDROmorphone/Normal Saline 15 MG/30 ML PCA IV PRN (15:26)
--- NOTE | 2018-11-03 15:41 | CRLCR ---
INDICATION: Central line placement TECHNIQUE: Chest radiograph 1 view COMPARISON: 12/13/2015 FINDINGS: Mediastinum: The mediastinum is normal in appearance. The heart silhouette is normal in size and morphology. Left subclavian line is noted with the tip in the cavoatrial region. Lung: Pulmonary vascular congestion and mild bibasilar atelectasis noted. No sign of pleural effusion seen. No pneumothorax is identified. IMPRESSION: 1. Left subclavian line is noted with the tip in the cavoatrial region. Dictated by Yahir Owens MD @ 11/03/2018 3:40:24 PM Dictated by: Yahir Owens MD @ 11/03/2018 15:40:29 (Electronically Signed)
[2018-11-03] MEDS ORDERED: Cyclobenzaprine 10 MG Tab PO PRN (16:27)
[2018-11-03] MEDS ORDERED: hydrOXYzine HCl 100 MG/2 ML SDV IM PRN (16:28)
[2018-11-03] MEDS: Celecoxib 200 MG Cap PO SCH (18:22)
[2018-11-03] MEDS: Acetaminophen 325 MG Tab PO SCH ×2 (18:22→22:58)
[2018-11-03] MEDS: ceFAZolin 2 GM in Sodium Chloride 0.9% 50 ML IV SCH (20:01)
[2018-11-03] MEDS: Dextrose 5%-Lactated Ringers 1,000 ML IV SCH (23:07)
[2018-11-04] MEDS: ceFAZolin 2 GM in Sodium Chloride 0.9% 50 ML IV SCH ×2 (04:48→11:38)
[2018-11-04] MEDS: Acetaminophen 325 MG Tab PO SCH ×4 (04:49→22:17)
[2018-11-04] MEDS: Dextrose 5%-Lactated Ringers 1,000 ML IV SCH (06:19)
[2018-11-04] MEDS: Celecoxib 200 MG Cap PO SCH (08:23)
[2018-11-04] MEDS: Aspirin 81 MG Tab.EC PO SCH (08:23)
[2018-11-04] MEDS: Enoxaparin 40 MG/0.4 ML Syringe SUBCUT SCH (08:23)
[2018-11-04] MEDS ORDERED: Dextrose 5%-Lactated Ringers 1,000 ML IV SCH (08:30)
[2018-11-04] MEDS: Docusate Sodium 100 MG Cap PO SCH ×2 (10:33→20:34)
[2018-11-04] MEDS: Ketoconazole 2% Crm 30 GM Tube TOP SCH ×2 (10:34→20:34)
[2018-11-04] MEDS: Bisacodyl 5 MG Tab PO SCH ×2 (10:34→20:34)
[2018-11-04] MEDS: Lisinopril 10 MG Tab PO SCH (10:35)
--- NOTE | 2018-11-04 13:34 | PN ---
DATE OF SERVICE: 11/04/2018 The patient has been afebrile with stable vital signs. Urine output has been satisfactory, but not overly high. We will back down the IV rate little bit, keep her more or less n.p.o. except some ice chips and sips of clear liquids. Eduardo catheter, we will leave in for today and monitor urine output and we will get that out tomorrow morning. Otherwise, we will hold on significant dietary advancement until bowels begin moving. We will start some bowel stimulation as well. Jovany Gutierrez MD /[id number]
[2018-11-04] MEDS: HYDROmorphone/Normal Saline 15 MG/30 ML PCA IV PRN (16:21)
[2018-11-05] MEDS: Acetaminophen 325 MG Tab PO SCH (05:44)
[2018-11-05] MEDS: Celecoxib 200 MG Cap PO SCH (07:27)
[2018-11-05] MEDS: Bisacodyl 5 MG Tab PO SCH ×2 (08:20→20:41)
[2018-11-05] MEDS: Lisinopril 10 MG Tab PO SCH (08:20)
[2018-11-05] MEDS: Aspirin 81 MG Tab.EC PO SCH (08:21)
[2018-11-05] MEDS: Enoxaparin 40 MG/0.4 ML Syringe SUBCUT SCH (08:21)
[2018-11-05] MEDS: Ketoconazole 2% Crm 30 GM Tube TOP SCH ×2 (08:21→20:41)
[2018-11-05] MEDS: Docusate Sodium 100 MG Cap PO SCH ×2 (08:22→20:41)
[2018-11-05] MEDS: Acetaminophen Soln 650 MG/20.3 ML UD Cup PO SCH ×2 (11:02→17:44)
--- NOTE | 2018-11-05 11:56 | PN ---
DATE OF SERVICE: 11/05/2018 The patient has been afebrile with stable vital signs. No flatus or bowel movement as of yet, but appears to be rumbling a little bit. To begin a full liquid diet today. , and we will get that today in the liquid form along with the liquids. Otherwise, maximize activity, work with pulmonary toilet, and she can get in the shower today. We will back down the IV rate somewhat to 70 to 75 mL now. Jovany Gutierrez MD /[id number]
[2018-11-05] MEDS: HYDROmorphone/Normal Saline 15 MG/30 ML PCA IV PRN (15:24)
[2018-11-05] MEDS: Dextrose 5%-Lactated Ringers 1,000 ML IV SCH (20:17)
[2018-11-06] MEDS: Acetaminophen Soln 650 MG/20.3 ML UD Cup PO SCH ×5 (00:15→23:34)
[2018-11-06] MEDS: Celecoxib 200 MG Cap PO SCH (07:55)
[2018-11-06] MEDS ORDERED: Magnesium Hydroxide 400 MG/5 ML Susp 30 ML Cup PO SCH (09:00)
[2018-11-06] MEDS: Docusate Sodium 100 MG Cap PO SCH ×2 (09:18→20:10)
[2018-11-06] MEDS: Bisacodyl 5 MG Tab PO SCH ×2 (09:18→20:10)
[2018-11-06] MEDS: Enoxaparin 40 MG/0.4 ML Syringe SUBCUT SCH (09:18)
[2018-11-06] MEDS: Aspirin 81 MG Tab.EC PO SCH (09:18)
[2018-11-06] MEDS: Lisinopril 10 MG Tab PO SCH (09:18)
[2018-11-06] MEDS: Ketoconazole 2% Crm 30 GM Tube TOP SCH ×2 (09:19→20:11)
[2018-11-06] MEDS: Dextrose 5%-Lactated Ringers 1,000 ML IV SCH ×2 (09:22→23:37)
--- NOTE | 2018-11-06 14:45 | PN ---
DATE OF SERVICE: 11/06/2018 SUBJECTIVE: Barbara has not had a bowel movement yet. She states her pain is controlled. She is on a full liquid diet, up ambulating. REVIEW OF SYSTEMS: Remainder of review of systems negative for any pertinent positives or negatives. OBJECTIVE: GENERAL: Barbara Vernon is a 68-year-old female. She is alert and orientated. VITAL SIGNS: TPR 96.2, 73, 18, blood pressure 128/61. HEENT: Negative. NECK: Supple. HEART: Regular rate and rhythm. LUNGS: Clear. ABDOMEN: Dressing dry and intact. Aquacel is on. Abdominal binder is on. EXTREMITIES: Without peripheral edema. ASSESSMENT: 1. Insertion of left subclavian triple-lumen catheter. 2. Exploratory laparotomy with lysis of extensive adhesions. a. Repair of recurrent incarcerated incisional hernia with mesh. b. Placement of Interceed mesh for inadequate peripheral vein access and recurrent incarcerated incisional hernia and extensive intraabdominal adhesions. Date of surgery: 11/03/2018. Surgeon: Jovany Gutierrez MD. PLAN: 1. Zithromax 250 mg IV daily. 2. Discontinue Aquacel, then shower and replace after showering. 3. Milk of magnesia 30 mL b.i.d. until BM. 4. Good pulmonary toilet. 5. We will evaluate p.r.n. or in a.m. Ayanna Stoddard PA-C /[id number]
[2018-11-06] MEDS: HYDROmorphone 2 MG Tab PO PRN (21:21)
[2018-11-07] MEDS: HYDROmorphone 2 MG Tab PO PRN (06:10)
[2018-11-07] MEDS: Acetaminophen Soln 650 MG/20.3 ML UD Cup PO SCH ×3 (06:10→17:49)
[2018-11-07] MEDS: Celecoxib 200 MG Cap PO SCH (07:43)
[2018-11-07] MEDS: Lisinopril 10 MG Tab PO SCH (09:50)
[2018-11-07] MEDS: Docusate Sodium 100 MG Cap PO SCH ×2 (09:50→20:24)
[2018-11-07] MEDS: Aspirin 81 MG Tab.EC PO SCH (09:50)
[2018-11-07] MEDS: Enoxaparin 40 MG/0.4 ML Syringe SUBCUT SCH (09:50)
[2018-11-07] MEDS: Ketoconazole 2% Crm 30 GM Tube TOP SCH ×2 (09:51→20:25)
[2018-11-07] MEDS: Lactobacillus Rhamnosus GG (Probiotic) Cap PO SCH ×2 (12:36→20:24)
[2018-11-07] MEDS: Dextrose 5%-Lactated Ringers 1,000 ML IV SCH (12:36)
[2018-11-08] MEDS: Acetaminophen Soln 650 MG/20.3 ML UD Cup PO SCH ×3 (03:09→12:00)
[2018-11-08] MEDS: Lisinopril 10 MG Tab PO SCH (08:03)
[2018-11-08] MEDS: Lactobacillus Rhamnosus GG (Probiotic) Cap PO SCH (08:03)
[2018-11-08] MEDS: Celecoxib 200 MG Cap PO SCH (08:03)
[2018-11-08] MEDS: Docusate Sodium 100 MG Cap PO SCH (08:03)
[2018-11-08] MEDS: Aspirin 81 MG Tab.EC PO SCH (08:07)
[2018-11-08] MEDS: Enoxaparin 40 MG/0.4 ML Syringe SUBCUT SCH (08:07)
[2018-11-08] MEDS: Ketoconazole 2% Crm 30 GM Tube TOP SCH (08:07)
[2018-11-08 08:08] VITALS: BP 124/57
[2018-11-08 10:14] VITALS: PULSE 72
--- NOTE | 2018-11-08 11:38 | PN ---
DATE OF SERVICE: 11/07/2018 The patient has been afebrile with stable vital signs. She has been moving her bowels, they are stable. Discontinue the bowel stimulation at this point. She is still not satisfactorily mobile, and we will work on that today. She probably will be ready for discharge home. Otherwise, will go to step-4 diet, and she has been switched over to oral pain medication. We will have Dietary see the patient for Bariatric followup issues. Jovany Gutierrez MD /[id number]
--- NOTE | 2018-11-08 14:22 | DISCH ---
ADMISSION DIAGNOSES: 1. Incisional hernia. 2. Status post Natasha-en-Y gastric bypass surgery. 3. Unspecified surgical malabsorption. 4. B12 deficiency. 5. Idiopathic peripheral neuropathy. 6. Arthritis of foot. 7. Environmental allergies. 8. Osteopenia. 9. Increased blood pressure (not hypertension). 10.Hyperglycemia. DISCHARGE DIAGNOSES: 1. Insertion of left subclavian triple-lumen catheter. 2. Exploratory laparotomy with lysis of extensive adhesions. a. Repair of recurrent incarcerated incisional hernia with mesh. b. Placement of Interceed mesh. POSTOPERATIVE DIAGNOSES: 1. Inadequate peripheral vein access. 2. Recurrent incisional hernia. 3. Extensive intraabdominal adhesions. Date of surgery: 11/03/2018. Surgeon: Jovany Gutierrez MD. HISTORY: Barbara Vernon is a 68-year-old female with recurrent incisional hernia. After preoperative evaluation and discussion of possible risks and possible complications, she wished to proceed with surgical procedure. HOSPITAL COURSE: Barbara had her surgery on 11/03/2018. She had no operative complications. On postoperative day #1, her IV was decreased. She remained to be on ice chips and sips of clear fluid. Her Eduardo catheter was left in to measure accurate intake and output. On postoperative day #2, she was started on a full liquid diet, IV was decreased, and she was encouraged to work on pulmonary status. On postoperative day #3, bowel stimulation was started, Aquacel dressing was removed and replaced after shower. On postoperative day #4, she started having bowel movements and her oral intake was adequate, pain was controlled, vital signs were stable, and she was able to be discharged to home on 11/08/2018. PHYSICAL EXAMINATION: GENERAL: Barbara Vernon is a pleasant 68-year-old female. VITAL SIGNS: Height is 5 feet 6.14 inches, weight is 261 pounds. TPR is 97.4, 77, 18, blood pressure 149/74. HEENT: Negative. NECK: Supple. HEART: Regular rate and rhythm. LUNGS: Clear. ABDOMEN: Stapled incision looks good. Abdominal binder has been on. EXTREMITIES: Without peripheral edema. DISPOSITION: Discharged to home. CONDITION: Stable and improving. FOLLOWUP APPOINTMENT: Ayanna Stoddard PA-C, on 11/16/2018 at 11 a.m. HOME MEDICATIONS: 1. Celebrex 200 mg one daily #14. 2. Colace 100 mg oral twice daily #100. 3. Dilaudid 2 mg every 4 hours p.r.n. pain #30. To resume all home medications includin. Tylenol 650 mg every 6 hours p.r.n. pain. 2. Calcium carbonate 500 mg twice daily. 3. Vitamin D3 1000 International Units daily. 4. Vitamin B12 1000 mcg sublingual twice daily. 5. EpiPen use as directed. 6. Vitron-C one tablet twice daily. 7. Glucosamine 1 tablet oral daily. 8. Lisinopril 10 mg oral daily. 9. Magnesium 250 mg oral twice daily. 10.Antivert 12.5 mg oral 3 times a day. 11.Menthol and zinc oxide ointment, use one dose topical as needed for rash. 12.Multivitamin one tablet twice daily. 13.Nystatin 15 g twice daily. 14.Senokot. 15.Docusate 1 to 2 tablet at bedtime p.r.n. constipation. 16. 100 mg oral at bedtime. 17.Kenalog 0.1% cream twice daily. 18.Vitamin A. 19.Vitamin C. 20.Vitamin E. 21.Zinc. 22.Copper. 23.PreserVision one oral twice daily. DIET: Step 3 gastric bypass diet. Drink 8 to 10 glasses of water a day. ACTIVITY: As tolerated. No lifting greater than 10 pounds for 6 weeks. Driving: Do not drive for 1 week and while on pain medication. Shower/bathing: May shower. DISCHARGE INSTRUCTIONS: Notify provider if any fever, increased pain, swelling, redness, nausea, or vomiting. Keep site clean and dry. Wound incision care. Wear abdominal binder for 6 weeks and then as tolerated. Keep a pressure dressing over the area where hernia is to prevent fluid buildup above the mesh. SPECIAL INSTRUCTION: Use incentive spirometer 10 times every hour while awake.
--- NOTE | 2018-11-10 08:35 | OR ---
DATE OF PROCEDURE: 11/03/2018 SURGEON: Jovany Gutierrez MD PREOPERATIVE DIAGNOSES: 1. Limited peripheral venous access. 2. Recurrent incisional hernia. POSTOPERATIVE DIAGNOSES: 1. Limited peripheral venous access. 2. Recurrent incarcerated incisional hernia. 3. Extensive intraabdominal adhesions. OPERATIVE PROCEDURES: 1. Insertion of left subclavian vein triple-lumen catheter (97122). 2. Exploratory laparotomy with lysis of extensive adhesions: a. Repair of recurrent incarcerated incisional hernia with mesh (99054, [id number]). b. Placement of Interceed mesh to limit recurrent adhesion formation between pelvic and abdominal wall and underlying viscera (94127). ANESTHESIA: General. SOFTWARE CONTROLS ENGINEER: Ayanna Stoddard PA-C. INDICATIONS FOR PROCEDURE: This is a 68-year-old presenting with a recurrent incisional hernia located in the upper abdomen. The plan is to proceed with an open repair of this with a mesh technique. Potential risks including bleeding, infection, injury to underlying viscera, problems with mesh becoming infected, and hernia recurring were all reviewed, along with the remote possibility of cardiopulmonary, septic, or hemorrhagic complications leading to , and the patient wishes to proceed. Additionally, the patient has very limited peripheral venous access, and a central line will be placed. Potential risks of that including bleeding, infection, injury to vasculature and her lung were all likewise reviewed, and the patient wishes to proceed. PROCEDURE IN DETAIL: The patient was taken to the operating room and placed in a supine position. After general endotracheal anesthesia was induced, a Eduardo catheter was inserted, after which the upper chest and neck areas were prepped and draped and the left subclavian vein cannulated. Guidewire was passed, and over the guidewire, a triple-lumen catheter was positioned. Good in and outflow was noted. The ports were flushed with heparinized saline. The catheter was sutured to the skin with some 3-0 silk stitch. Subsequent chest x-ray showed no complications and good catheter position. The abdomen was then prepped and draped. A portion of the previous midline scar was incised and carried down through the skin and subcutaneous tissue. A large hernia sac was then encountered, and this was dissected free down to the level of fascia in all areas. The hernia sac was then opened. It had some incarcerated omentum and transverse colon within it, which was dissected free and placed back into the intraperitoneal location. Some additional adhesions around the area were then likewise divided, and once enough fascia was cleared that the mesh placement would be adequate in terms of its distance away from the actual defect, a Ventrio ST hernia mesh with dimensions of 19.6 cm x 24.6 cm with an oval configuration was selected. It appeared to be probably the best way to place this in terms of coverage at 5 cm intervals around its circumference. 2-0 Vicryl sutures were placed on the polypropylene side of the mesh, and the mesh was then soaked in antibiotic-containing saline solution. Small stab wounds were made in the abdominal wall, where the sutures will be pulled up, thus affixing the mesh well away from the fascial edges. Once the left half of the sutures were pulled up, Interceed mesh was then placed underneath the area of involvement to limit recurrent adhesion formation between pelvic and abdominal wall and underlying viscera. The remaining sutures were then pulled up, thus affixing the mesh clearly in place. These were then tied and the underlying shelf of the mesh was the also affixed to the abdominal wall circumferentially with some titanium tacking screws. At that point, no further problems noted. The area was irrigated as it had been periodically through the case with antibiotic-containing saline solution. The midline fascia was reapproximated with #2 Vicryl stitch, subcutaneous tissue with 2 layers of 3-0 and 4-0 Vicryl stitch deep and adry for the skin. Dressing was applied. The patient was taken to the recovery room in satisfactory condition. There were no evident complications. Physician captain's assistant, Ayanna Stoddard, played an essential role in assisting in this case, helping to position the patient, retract structures as needed, as well as suturing and cutting sutures when indicated. Her presence improved patient safety and decreased operative time. Jovany Gutierrez MD /[id number]
== END 2018-11-08 13:00 | disposition home or self-care (01) | DRG 336 ==
LOC: JP.MS 10:01 → JP.SDS 10:01 → EDSTATUS 12:00 → UNDOADMIN 15:10 → JP.MS 15:10
PROVIDERS: ADMIT Surgery; ATTEND Surgery
PROC: 0WUF0JZ Supplement Abdominal Wall with Synthetic Substitute, Open Approach (ICD-10-PCS; principal; 2018-11-03)
PROC: 0DNW0ZZ Release Peritoneum, Open Approach (ICD-10-PCS; 2018-11-03)
PROC: 3E0M05Z Introduction of Adhesion Barrier into Peritoneal Cavity, Open Approach (ICD-10-PCS; 2018-11-03)
DX: K43.0 Incisional hernia with obstruction, without gangrene (principal); K90.9 Intestinal malabsorption, unspecified; Z68.41 Body mass index [BMI] 40.0-44.9, adult; E53.8 Deficiency of other specified B group vitamins; G60.9 Hereditary and idiopathic neuropathy, unspecified; M85.80 Other specified disorders of bone density and structure, unspecified site; R73.9 Hyperglycemia, unspecified; K66.0 Peritoneal adhesions (postprocedural) (postinfection); F32.9 Major depressive disorder, single episode, unspecified; K21.9 Gastro-esophageal reflux disease without esophagitis; I10 Essential (primary) hypertension; M17.10 Unilateral primary osteoarthritis, unspecified knee; M19.079 Primary osteoarthritis, unspecified ankle and foot; Z98.84 Bariatric surgery status; Z79.899 Other long term (current) drug therapy; Z91.030 Bee allergy status; Z79.82 Long term (current) use of aspirin; Z88.1 Allergy status to other antibiotic agents; Z91.040 Latex allergy status; Z88.0 Allergy status to penicillin; Z88.8 Allergy status to other drugs, medicaments and biological substances; Z88.5 Allergy status to narcotic agent
CPT/HCPCS: 71045; 88302; 94762; A9270-GY; C1713; C1781; J0171; J0330; J0456; J0690; J1100; J1170; J1642; J1650; J2001; J2020; J2185; J2405; J2704; J2710; J2795; J3010; J3490; J7040; J7042; J7050

== ENCOUNTER 2022-07-11 09:52 | Emergency (ER) | payer MEDICARE ==
[2022-07-11 10:15] VITALS: BP 116/68; PULSE 70
[2022-07-11 11:07] LABS: APPEARANCE,URINE CLEAR (CLEAR); BILIRUBIN,URINE NEGATIVE (NEGATIVE); COLOR,URINE YELLOW (YELLOW); GLUCOSE,URINE NEGATIVE (NEGATIVE); KETONES,URINE NEGATIVE (NEGATIVE); LEUKOCYTE ESTERASE,URINE NEGATIVE (NEGATIVE); NITRITE,URINE NEGATIVE (NEGATIVE); OCCULT BLOOD,URINE NEGATIVE (NEGATIVE); PROTEIN,URINE NEGATIVE (NEGATIVE); UROBILINOGEN,URINE 0.2 EU/dL (0.2-1.0)
[2022-07-11 11:13] LABS: AMORPHOUS SEDIMENT,URINE NOT SEEN; BACTERIA,URINE NOT SEEN; EPITHELIAL CELLS,URINE FEW; MUCUS,URINE FEW; RBC,URINE NOT SEEN (0-5); WBC,URINE NOT SEEN (0-5)
[2022-07-11 11:13] LABS: HEMATOCRIT 42.5 % (34.3-46.0); HEMOGLOBIN 14.1 g/dL (11.2-15.5); MEAN CORPUSCULAR HGB CONC 33.2 g/dL (31.6-35.5); MEAN CORPUSCULAR VOLUME 90.4 fL (81.4-99.0); RED BLOOD CELL COUNT 4.7 M/uL (3.77-5.24); WHITE BLOOD CELL COUNT,WBC 8.8 K/uL (3.2-11.0)
[2022-07-11 11:35] LABS: ANION GAP 9.7 mmol/L (5.0-14.0); CALCIUM 9.2 mg/dL (8.5-10.1); CREATININE 0.7 mg/dL (0.6-1.0); EST CRCL DRUG DOSING (CG) 70.01 mL/min; POTASSIUM,K 4.4 mmol/L (3.6-5.2)
== END 2022-07-11 11:58 | disposition home or self-care (01) ==
LOC: JP.ED 09:52
DX: G44.209 Tension-type headache, unspecified, not intractable (principal); I10 Essential (primary) hypertension; Z88.5 Allergy status to narcotic agent; Z88.8 Allergy status to other drugs, medicaments and biological substances; Z88.1 Allergy status to other antibiotic agents; Z91.040 Latex allergy status; Z88.0 Allergy status to penicillin; Z91.030 Bee allergy status; Z79.899 Other long term (current) drug therapy
CPT/HCPCS: 36415; 80048; 81001; 84484; 85027; 93005; 99284

== ENCOUNTER 2023-03-21 09:42 | Emergency (ER) | payer MEDICARE ==
[2023-03-21 11:17] LABS: BASOPHILS ABSOLUTE AUTO 0.06 K/uL (0.00-0.10); BASOPHILS PERCENT AUTO 1.1 % (0.1-1.3); EOSINOPHILS ABSOLUTE AUTO 0.12 K/uL (0.00-0.40); EOSINOPHILS PERCENT AUTO 2.2 % (0.0-5.4); HEMATOCRIT 41.8 % (34.3-46.0); HEMOGLOBIN 14.1 g/dL (11.2-15.5); IMMATURE GRAN PERCENT AUTO 0.2 % (0.0-0.7); LYMPHOCYTES ABSOLUTE AUTO 1.74 K/uL (0.8-3.3); MEAN CORPUSCULAR HEMOGLOBIN 30.1 pg (31.6-35.5); MEAN CORPUSCULAR HGB CONC 33.7 g/dL (31.6-35.5); MEAN CORPUSCULAR VOLUME 89.3 fL (81.4-99.0); MONOCYTES ABSOLUTE AUTO 0.53 K/uL (0.20-0.90); MONOCYTES PERCENT AUTO 9.8 % (3.3-12.6); NEUTROPHILS ABSOLUTE AUTO 2.97 K/uL (1.0-7.6); NEUTROPHILS PERCENT AUTO 54.7 % (40.0-78.1); PLATELET COUNT,PLT 209 K/uL (130-375); RED BLOOD CELL COUNT 4.68 M/uL (3.77-5.24); WHITE BLOOD CELL COUNT,WBC 5.4 K/uL (3.2-11.0)
[2023-03-21 11:18] LABS: IMMATURE GRAN ABSOLUTE AUTO 0.01 K/uL (0.00-0.23)
[2023-03-21 11:28] LABS: APPEARANCE,URINE CLEAR (CLEAR); BILIRUBIN,URINE NEGATIVE (NEGATIVE); COLOR,URINE YELLOW (YELLOW); GLUCOSE,URINE NEGATIVE (NEGATIVE); KETONES,URINE NEGATIVE (NEGATIVE); LEUKOCYTE ESTERASE,URINE NEGATIVE (NEGATIVE); NITRITE,URINE NEGATIVE (NEGATIVE); OCCULT BLOOD,URINE NEGATIVE (NEGATIVE); PH,URINE 8.5 (5.0-8.0); PROTEIN,URINE NEGATIVE (NEGATIVE); UROBILINOGEN,URINE 0.2 EU/dL (0.2-1.0)
[2023-03-21 11:32] LABS: ANION GAP 9.3 mmol/L (5.0-14.0); CALCIUM 8.9 mg/dL (8.5-10.1); CREATININE 0.7 mg/dL (0.6-1.0); EST CRCL DRUG DOSING (CG) 69.01 mL/min; POTASSIUM,K 3.6 mmol/L (3.6-5.2)
[2023-03-21 11:37] LABS: AMORPHOUS SEDIMENT,URINE RARE; BACTERIA,URINE NOT SEEN; EPITHELIAL CELLS,URINE RARE; MUCUS,URINE NOT SEEN; RBC,URINE 0-5 (0-5); WBC,URINE NOT SEEN (0-5)
[2023-03-21] MEDS ORDERED: hydrOXYzine HCl 25 MG Tab PO ONE (11:44)
[2023-03-21 11:54] VITALS: BP 150/70; PULSE 59
== END 2023-03-21 12:00 | disposition home or self-care (01) ==
LOC: JP.ED 09:42
DX: F41.9 Anxiety disorder, unspecified (principal); E66.9 Obesity, unspecified; Z68.41 Body mass index [BMI] 40.0-44.9, adult; Z90.49 Acquired absence of other specified parts of digestive tract; Z90.710 Acquired absence of both cervix and uterus; Z88.1 Allergy status to other antibiotic agents; Z91.040 Latex allergy status; Z88.0 Allergy status to penicillin; Z91.030 Bee allergy status; Z88.5 Allergy status to narcotic agent; Z88.8 Allergy status to other drugs, medicaments and biological substances; Z91.048 Other nonmedicinal substance allergy status; Z79.899 Other long term (current) drug therapy
CPT/HCPCS: 36415; 80048; 81001; 85025; 93005; 93010; 99283; 99284; A9270-GY

== ENCOUNTER 2024-11-03 11:13 | Emergency (ER) | payer MEDICARE, BC ==
[2024-11-03] MEDS ORDERED: Ondansetron 4 MG/2 ML SDV IVPUSH ONE (12:43)
[2024-11-03] MEDS ORDERED: Naloxone 0.4 MG/ML SDV IVPUSH PRN (12:43)
[2024-11-03 12:58] LABS: BASOPHILS ABSOLUTE AUTO 0.03 K/uL (0.00-0.10); BASOPHILS PERCENT AUTO 0.5 % (0.1-1.3); EOSINOPHILS ABSOLUTE AUTO 0.05 K/uL (0.00-0.40); EOSINOPHILS PERCENT AUTO 0.8 % (0.0-5.4); IMMATURE GRAN ABSOLUTE AUTO 0.03 K/uL (0.00-0.23); IMMATURE GRAN PERCENT AUTO 0.5 % (0.0-0.7); LYMPHOCYTES ABSOLUTE AUTO 1.76 K/uL (0.8-3.3); LYMPHOCYTES PERCENT AUTO 27.2 % (11.4-47.7); MONOCYTES ABSOLUTE AUTO 0.67 K/uL (0.20-0.90); MONOCYTES PERCENT AUTO 10.4 % (3.3-12.6); NEUTROPHILS ABSOLUTE AUTO 3.93 K/uL (1.0-7.6); NEUTROPHILS PERCENT AUTO 60.6 % (40.0-78.1); PLATELET COUNT,PLT 209 K/uL (130-375); RED BLOOD CELL COUNT 4.30 M/uL (3.77-5.24); WHITE BLOOD CELL COUNT,WBC 6.5 K/uL (3.2-11.0)
[2024-11-03 12:59] LABS: APPEARANCE,URINE CLEAR (CLEAR); GLUCOSE,URINE NEGATIVE (NEGATIVE); OCCULT BLOOD,URINE NEGATIVE (NEGATIVE)
[2024-11-03 13:19] LABS: A/G RATIO 1.0 (1.2-2.2); ALANINE AMINOTRANSFERASE,ALT 23 U/L (12-78); ASPARTATE AMNIOTRANSFERASE,AST 22 U/L (15-37); BILIRUBIN TOTAL 0.5 mg/dL (0.2-1.0); BLOOD UREA NITROGEN,BUN 14 mg/dL (7-18); CARBON DIOXIDE,CO2 29 mmol/L (21-32); CHLORIDE,CL 104 mmol/L (100-108); CREATININE 0.7 mg/dL (0.6-1.0); EST CRCL DRUG DOSING (CG) 67.01 mL/min; ESTIMATED GFR 91 mL/min (>60); GLUCOSE RANDOM 118 mg/dL (74-106); POTASSIUM,K 4.6 mmol/L (3.6-5.2); PROTEIN TOTAL,TP 7.2 g/dL (6.4-8.2); SODIUM,NA 139 mmol/L (140-148)
[2024-11-03] MEDS: Iopamidol 612 MG/ML 100 ML Bottle IV SCH (13:54)
[2024-11-03 15:12] VITALS: BP 142/60; PULSE 71
== END 2024-11-03 15:14 | disposition home or self-care (01) ==
LOC: JP.ED 11:13
DX: K57.32 Diverticulitis of large intestine without perforation or abscess without bleeding (principal); I10 Essential (primary) hypertension; E66.9 Obesity, unspecified; Z68.41 Body mass index [BMI] 40.0-44.9, adult; Z98.84 Bariatric surgery status; Z90.49 Acquired absence of other specified parts of digestive tract; Z90.710 Acquired absence of both cervix and uterus; Z88.0 Allergy status to penicillin; Z88.5 Allergy status to narcotic agent; Z88.8 Allergy status to other drugs, medicaments and biological substances; Z91.030 Bee allergy status; Z91.040 Latex allergy status; Z79.899 Other long term (current) drug therapy
CPT/HCPCS: 36415; 74177; 80053; 81003; 83605; 83690; 83735; 85025; 86140; 96360; 96361; 99284; J7030; Q9967

== ENCOUNTER 2024-12-13 12:13 | Emergency (ER) | payer MEDICARE, BC ==
[2024-12-13] MEDS: diphenhydrAMINE 50 MG/ML SDV IVPUSH ONE (12:28)
[2024-12-13] MEDS: Lidocaine 4% Crm 5 GM Tube TOP ONE (12:46)
[2024-12-13 14:21] VITALS: BP 160/72; PULSE 82
== END 2024-12-13 14:49 | disposition home or self-care (01) ==
LOC: JP.ED 12:13
DX: G89.18 Other acute postprocedural pain (principal); I10 Essential (primary) hypertension; E66.9 Obesity, unspecified; Z88.8 Allergy status to other drugs, medicaments and biological substances; Z88.5 Allergy status to narcotic agent; Z91.040 Latex allergy status; Z88.0 Allergy status to penicillin; Z91.030 Bee allergy status; Z79.899 Other long term (current) drug therapy; Z86.16 Personal history of COVID-19; Z90.710 Acquired absence of both cervix and uterus; R79.1 Abnormal coagulation profile; K57.92 Diverticulitis of intestine, part unspecified, without perforation or abscess without bleeding; R16.0 Hepatomegaly, not elsewhere classified; K63.89 Other specified diseases of intestine
CPT/HCPCS: 36415; 47000; 71045; 71275; 74177; 76942; 80053; 83735; 84484; 85025; 85610; 85730; 88307; 88313; 88341; 88342; 93005; 93010; 96374; 96375; 99283; 99284; J1171; J1200; J1790; J2003; J2250; J2405; J3010; J7030

== ENCOUNTER 2025-01-09 07:26 | Day surgery (SDC) | payer MEDICARE, BC ==
[~2025-01-09 07:26] MED LIST changes: -Meropenem 500 MG SDV ONE; +Propofol 200 MG/20 ML SDV ONE; +fentaNYL 50 MCG/ML SDV ONE
[2025-01-09] MEDS: Lactated Ringers 1,000 ML IV SCH (08:12)
[2025-01-09] MEDS ORDERED: Propofol 200 MG/20 ML SDV ONE (08:43)
[2025-01-09 10:04] VITALS: BP 143/63; PULSE 56
== END 2025-01-09 10:30 | disposition home or self-care (01) ==
LOC: JP.SDS 07:26
PROVIDERS: ATTEND Surgery
DX: Z12.11 Encounter for screening for malignant neoplasm of colon (principal); K51.40 Inflammatory polyps of colon without complications; K57.30 Diverticulosis of large intestine without perforation or abscess without bleeding; I10 Essential (primary) hypertension; Z88.1 Allergy status to other antibiotic agents; Z91.040 Latex allergy status; Z88.0 Allergy status to penicillin; Z88.5 Allergy status to narcotic agent; Z91.030 Bee allergy status; Z88.6 Allergy status to analgesic agent
CPT/HCPCS: 00811; 45385; J2704; J3010; J7120